=== PATIENT | male | born 1970 | race African-American/Black ===

== ENCOUNTER 2021-07-10 19:27 | Emergency (ER) | payer OTHER, MEDICAID ==
[~2021-07-10] VITALS: Ht 182.9 cm; Wt 129.0 kg
[2021-07-10] MEDS ORDERED: ELIQUIS5 MG PO (22:38)
== END 2021-07-10 22:54 | disposition home or self-care (01) ==
LOC: ED 19:27
DX: S16.1XXA Strain of muscle, fascia and tendon at neck level, initial encounter (principal); S40.011A Contusion of right shoulder, initial encounter; S80.11XA Contusion of right lower leg, initial encounter; I26.99 Other pulmonary embolism without acute cor pulmonale; Z23 Encounter for immunization; V69.9XXA Occupant (driver) (passenger) of heavy transport vehicle injured in unspecified traffic accident, initial encounter
CPT/HCPCS: 70450; 71045; 71260; 72125; 73030; 73590; 74177; 80053; 81001; 82150; 83605; 83690; 85025; 86850; 86900; 86901; 90471; 90715; 99284-25; G0480; Q9967